=== PATIENT | female | born 1975 | race Caucasian/White ===

== ENCOUNTER → 2017-08-21 | Outpatient (CLI) | payer OTHER ==
[2015-11-12 12:01] VITALS: BP 112/69
[2017-08-21 12:22] LABS: BASOPHILS % (AUTO) 0.8 % (0.2-1.0); EOSINOPHILS # (AUTO) 0.1 x10^3/uL (0.0-0.2); EOSINOPHILS % (AUTO) 1.4 % (0.9-2.9); HEMATOCRIT 37.3 % (36.0-47.0); HEMOGLOBIN 12.5 g/dL (12.0-16.0); LYMPHOCYTES # (AUTO) 1.4 X10^3/uL (1.3-2.9); LYMPHOCYTES % (AUTO) 23.8 % (21.0-51.0); MEAN CORPUSCULAR HGB CONC 33.5 g/dL (33.0-35.0); MEAN CORPUSCULAR VOLUME 89.6 fL (80.0-100.0); MEAN PLATELET VOLUME 7.8 fL (7.4-11.0); MONOCYTES # (AUTO) 0.5 x10^3/uL (0.3-0.8); NEUTROPHILS # (AUTO) 3.9 x10^3/uL (2.2-4.8); PLATELET COUNT 267 X10^3/uL (150.0-450.0); RED BLOOD COUNT 4.17 X10^6/uL (3.5-5.4); RED CELL DISTRIBUTION WIDTH 12.3 % (11.6-16.5); WHITE BLOOD COUNT 5.9 X10^3/uL (3.6-10.0)
[2017-08-21 12:29] LABS: BILIRUBIN,URINE NEGATIVE (NEGATIVE); BLOOD/HEMOGLOBIN,URINE 2+ (NEGATIVE); GLUCOSE, URINE NEGATIVE (NEGATIVE); KETONES,URINE NEGATIVE (NEGATIVE); LEUKOCYTE ESTERASE ,URINE NEGATIVE (NEGATIVE); NITRITES,URINE NEGATIVE (NEGATIVE); PROTEIN,URINE 1+ (NEGATIVE); UROBILINOGEN,URINE NORMAL (NORMAL)
[2017-08-21 12:31] LABS: BLOOD UREA NITROGEN 13 mg/dL (7-18); CALCIUM 8.5 mg/dL (8.5-10.1); CARBON DIOXIDE 27.8 mmol/L (21-32); CHLORIDE 102 mmol/L (98-107); CREATININE 0.71 mg/dL (0.55-1.02); SODIUM 138 mmol/L (136-145); eGFR BLACK RACES > 60 (>60); eGFR NON BLACK RACES > 60 (>60)
[2017-08-21 12:39] LABS: SERUM PREGNANCY TEST, QUAL NEGATIVE <10 mIU/mL
[2017-08-21 12:40] LABS: APPEARANCE,URINE CLEAR (CLEAR); COLOR,URINE YELLOW (YELLOW)
[2017-08-21 12:42] LABS: BACTERIA,URINE NEGATIVE /HPF (NEGATIVE); RBC,URINE 0-5 /HPF (NEGATIVE); SQUAMOUS EPITHELIAL CELL,UR RARE /HPF (NEGATIVE)
--- NOTE | 2017-08-21 14:46 | RAD ---
Examination: Chest, PA and lateral views History: Preop Findings: Normal appearance of heart, lungs, mediastinum and pleural spaces. Impression: No significant chest abnormality. Reported By:
== END ==
LOC: LAB 11:52
PROVIDERS: ATTEND Specialist
DX: Z01.818 Encounter for other preprocedural examination (principal); Z01.810 Encounter for preprocedural cardiovascular examination; Z01.811 Encounter for preprocedural respiratory examination; Z32.02 Encounter for pregnancy test, result negative; N92.5 Other specified irregular menstruation; N94.6 Dysmenorrhea, unspecified; R10.2 Pelvic and perineal pain
CPT/HCPCS: 36415; 71046; 80048; 81001; 84703; 85025; 85610; 85730; 86850; 86900; 86901; 87086; 93005; 93010

== ENCOUNTER 2017-08-23 06:18 | Inpatient (IN) | payer OTHER ==
[2017-08-23] MEDS ORDERED: ANCEF VIAL 1 GM 1 GM in NS 50 ML IV + SPIKE MINIBAG* 50 ML IV PRN (06:35)
[2017-08-23] MEDS ORDERED: D5 1/2 NS 1000 ML 1,000 ML IV SCH (06:35)
[2017-08-23] MEDS ORDERED: ANCEF VIAL 1 GM ONE (06:37)
[2017-08-23] MEDS ORDERED: NS 100 ML IV 100 ML IV ONE (06:37)
[2017-08-23 06:50] VITALS: BMI 28.5
[2017-08-23] MEDS ORDERED: FENTANYL INJ 250 mcg ONE (07:16)
[2017-08-23] MEDS ORDERED: DILAUDID INJ ONE (07:16)
[2017-08-23] MEDS ORDERED: PHENERGAN INJ 25 MG IVP PRN (09:10)
[2017-08-23] MEDS ORDERED: DILAUDID INJ IVP PRN (09:10)
[2017-08-23] MEDS ORDERED: BENADRYL INJ 50 MG VIAL IVP PRN ×2 (09:10→09:37)
[2017-08-23] MEDS ORDERED: ZOFRAN INJ 4 MG VIAL IVP PRN ×2 (09:10→09:37)
[2017-08-23] MEDS ORDERED: REGLAN INJ 10 MG VIAL IVP PRN (09:10)
[2017-08-23] MEDS ORDERED: PHENERGAN INJ 25 MG ONE (09:13)
[2017-08-23] MEDS: D5 1/2 NS 1000 ML 1,000 ML IV SCH ×6 (10:12→22:48)
[2017-08-23] MEDS: MORPHINE SULFATE PCA 30 MG IVP PRN ×2 (10:17→14:58)
[2017-08-23] MEDS ORDERED: ZOFRAN INJ 4 MG VIAL ONE (15:49)
[2017-08-23] MEDS ORDERED: NEOSTIGMINE INJ ONE (15:49)
[2017-08-23] MEDS ORDERED: QUELICIN (OR ANECTINE) ONE (15:49)
[2017-08-23] MEDS ORDERED: DIPRIVAN VIAL ONE (15:49)
[2017-08-23] MEDS ORDERED: VERSED ONE (15:49)
[2017-08-23] MEDS ORDERED: ROBINUL ONE (15:49)
[2017-08-23] MEDS ORDERED: NORCURON INJ 10 MG VIAL ONE (15:49)
[2017-08-23] MEDS ORDERED: XYLOCAINE 2 % (PLAIN) ONE (15:49)
[2017-08-23] MEDS ORDERED: SUPRANE IN ONE (15:49)
[2017-08-23] MEDS: TORADOL 30 MG VIAL IVP PRN (17:02)
[2017-08-24] MEDS: TORADOL 30 MG VIAL IVP PRN (03:20)
[2017-08-24] MEDS: D5 1/2 NS 1000 ML 1,000 ML IV SCH ×2 (03:22→05:48)
[2017-08-24 05:46] LABS: BLOOD UREA NITROGEN 7 mg/dL (7-18); CALCIUM 7.8 mg/dL (8.5-10.1); CARBON DIOXIDE 26.9 mmol/L (21-32); CHLORIDE 105 mmol/L (98-107); COR NA(FOR HYPERGLY) 138 mmol/L (136-145); CREATININE 0.75 mg/dL (0.55-1.02); SODIUM 138 mmol/L (136-145); eGFR BLACK RACES > 60 (>60); eGFR NON BLACK RACES > 60 (>60)
[2017-08-24 06:09] LABS: BASOPHILS % (AUTO) 0.3 % (0.2-1.0); EOSINOPHILS # (AUTO) 0.1 x10^3/uL (0.0-0.2); EOSINOPHILS % (AUTO) 0.7 % (0.9-2.9); HEMATOCRIT 30.2 % (36.0-47.0); HEMOGLOBIN 10.4 g/dL (12.0-16.0); LYMPHOCYTES # (AUTO) 1.2 X10^3/uL (1.3-2.9); LYMPHOCYTES % (AUTO) 11.9 % (21.0-51.0); MEAN CORPUSCULAR HEMOGLOBIN 30.4 pg (27.0-34.0); MEAN CORPUSCULAR HGB CONC 34.6 g/dL (33.0-35.0); MEAN PLATELET VOLUME 8.1 fL (7.4-11.0); MONOCYTES # (AUTO) 0.9 x10^3/uL (0.3-0.8); MONOCYTES % (AUTO) 8.7 % (0.0-13.0); NEUTROPHILS # (AUTO) 7.8 x10^3/uL (2.2-4.8); NEUTROPHILS % (AUTO) 78.4 % (42.0-75.0); PLATELET COUNT 191 X10^3/uL (150.0-450.0); RED BLOOD COUNT 3.43 X10^6/uL (3.5-5.4); RED CELL DISTRIBUTION WIDTH 12.2 % (11.6-16.5); WHITE BLOOD COUNT 9.9 X10^3/uL (3.6-10.0)
[2017-08-24] MEDS ORDERED: MYLICON TAB 80 MG CHEW PO PRN (07:22)
[2017-08-24] MEDS ORDERED: MOTRIN TAB 800 MG PO PRN (08:01)
[2017-08-24] MEDS: COLACE CAP 100 MG PO SCH ×2 (08:56→20:15)
[2017-08-24] MEDS: CYMBALTA PO SCH (08:56)
[2017-08-24] MEDS: SYNTHROID 125 mcg TAB PO SCH ×2 (08:56→16:30)
[2017-08-24] MEDS: MILK OF MAGNESIA PO SCH ×5 (08:57→20:16)
[2017-08-24] MEDS: PERCOCET TAB 5/325 MG PO PRN ×3 (08:57→20:15)
[2017-08-24] MEDS: BACTROBAN OINT TOP SCH ×2 (16:28→21:52)
[2017-08-25] MEDS: BACTROBAN OINT TOP SCH (05:20)
[2017-08-25] MEDS: COLACE CAP 100 MG PO SCH (08:42)
[2017-08-25] MEDS: MILK OF MAGNESIA PO SCH (08:42)
[2017-08-25] MEDS: SYNTHROID 125 mcg TAB PO SCH (08:43)
[2017-08-25] MEDS: CYMBALTA PO SCH (08:43)
[2017-08-25 09:58] VITALS: BP 106/54
== END 2017-08-25 09:40 | disposition home or self-care (01) | DRG 743 ==
LOC: MED/SURG 06:18
PROVIDERS: ADMIT Specialist; ATTEND Specialist
PROC: 0UTC0ZZ Resection of Cervix, Open Approach (ICD-10-PCS; 2017-08-23)
PROC: 0UT90ZZ Resection of Uterus, Open Approach (ICD-10-PCS; principal; 2017-08-23 07:30)
DX: N92.5 Other specified irregular menstruation (principal); N94.6 Dysmenorrhea, unspecified; R10.2 Pelvic and perineal pain; E03.8 Other specified hypothyroidism
CPT/HCPCS: 36415; 80048; 85025; A4216; A4222; J0330; J0690; J1170; J1200; J1885; J2001; J2250; J2271; J2405; J2550; J2710; J3010; J3490; J7042

== ENCOUNTER → 2017-12-07 | Outpatient (CLI) | payer OTHER ==
--- NOTE | 2017-12-07 15:54 | CT ---
STUDY: CT ABDOMEN AND PELVIS WITHOUT IV AND ORAL CONTRAST HISTORY: Right lower quadrant pain. Hematuria. Comparison: None. Technique: Multiple axial images of the abdomen and pelvis were obtained from the lung bases to the pubic symphysis without the administration of IV contrast. Findings: The visualized portions of the lung bases are unremarkable. CT abdomen: The liver, gallbladder, spleen, pancreas, and adrenal glands are normal in appearance. No significant mesenteric lymphadenopathy or inflammatory stranding is appreciated. There is a nonobstr ucting renal calculus measuring 2.8 mm in the right kidney. No calculi are identified in the left kid pilar. There is no evidence of hydronephrosis or abnormal fat stranding. The stomach is normal in appearance. The small bowel is normal in appearance, without evidence of bow el wall thickening or small bowel obstruction. The terminal ileum and cecum are normal. The appendix is normal in appearance. There is no evidence of right lower quadrant fat stranding. The ascending and transverse colon are within normal limits. The descending colon is normal in appea sammi. No free air is identified. CT pelvis: The sigmoid colon contains multiple diverticuli. There is no evidence of diverticulitis. N o free air is identified in the pelvis The rectum is normal. The urinary bladder is normal. No abnorm al fluid collections are identified in the pelvis. There is no evidence of acute osseous abnormality. IMPRESSION: 1. No evidence of acute abdominal or pelvic abnormality. 2. Nonobstructing renal calculus measuring 2.8 mm in the right kidney. 3. Sigmoid diverticulosis, without diverticulitis. Reported By:
== END ==
LOC: RAD 14:12
PROVIDERS: ATTEND Internal Medicine
DX: R31.9 Hematuria, unspecified (principal); R10.31 Right lower quadrant pain
CPT/HCPCS: 74176